=== PATIENT | female | born 1980 | race Caucasian/White ===

== ENCOUNTER 2017-02-07 17:02 | Emergency (ER) | payer OTHER ==
[~2017-02-07] VITALS: Ht 167.6 cm; Wt 95.5 kg
[~2017-02-07 17:02] MED LIST: LACT1CAP65 PO; LEVO500T79 PO; OXYC-465 PO; PROM25TA14 PO
[2017-02-07 17:24] VITALS: BP 134/88; PULSE 99; RESP 20; O2SAT 97
--- NOTE | 2017-02-07 18:27 | ED.REPORT ---
HPI-Headache Date of Service Feb 07, 2017 ED Provider: Zaki Sargent MD Patient is a 36 year old female with a hx of HTN and migraines who presents to the ED complaining of a headache onset 2 days ago. Her pain radiates to the back of her neck. Associated symptoms include nausea. She denies fever, vision changes, or any other symptoms She has been taking 800mg of Ibuprofen every 4 hours without relief. Her last dose was at 1400 today. This is similar to her previous migraines. Nursing Notes Stated Complaint: MIGRAINE Chief Complaint: Headache Nursing Notes Reviewed: Yes Allergies: Coded Allergies: No Known Allergies (Verified , 02/07/17) Scheduled Fluoxetine (Fluoxetine) 40 Mg Capsule 40 MG PO DAILY Lisinopril (Lisinopril) 10 Mg Tablet 10 MG PO DAILY Norethindrone-Ethinyl Estrad (Dasetta) 1 Each Tablet 1 TAB PO DAILY General Time Seen by MD: 18:25 Chief Complaint Migraine headache Hx Obtained From: Patient Arrived By: Walk-in Sudden in Onset?: Yes Onset Occurred: 2 days ago Symptom Duration: Since onset Similar Sx Previous: Yes Risk-Headache )( SAH Risk Stratification HypertensionNo Anticoagulation therapy, No Prior SAH RF Statements: Risk factors reviewed )( IC Mass Risk Stratification No HIV, No Malignancy RF Statements: Risk factors reviewed Past Medical History Past Medical History HTN Migraines Past Surgical History R hip Reports: Reports: Knee replacement Smoking History Never Smoker Social History Drug Use: Denies drug use Ambulatory Status Independent Review of Systems Constitutional: Denies: Fever GI: Reports: Nausea Musculoskeletal: Reports: Neck pain Neurologic: Reports: Headache, Denies: Vision change Complete sys rev & neg: except as marked. Physical Exam Initial Vital Signs Vital Signs (First) Date Time Temp Pulse Resp B/P Pulse Ox O2 Delivery O2 Flow Rate FiO2 02/07/17 17:24 37.1 99 20 134/88 97 Room Air Initial VS: Reviewed, Vital signs normal Respiratory: Breath sounds normal, Clear to auscultation, No respiratory distress Abdomen / GI: Soft, Non-tender Skin: Warm, Dry Psychiatric: Mood/affect normal, Behavior normal, Normal thought content General/Constitutional: Awake, Alert, Well developed Distress / Hydration: Positive: Distress mild Head / Eyes: Atraumatic, Normocephalic Neck: Supple, No meningismus, Full range of motion Neurologic: Oriented X3, Speech NL, CN II - XII intact Cardiovascular: Heart rate NL, Peripheral circulation NL Re-Eval/Medical Decision Med Decision/Clinical Course 36-year-old female with history of migraine headaches presenting with her typical migraine headache. She has no focal neurologic deficits. She felt much better after Toradol and Reglan. No signs of meningitis. Patient was discharged home with likely diagnosis migraine headache with return precautions. Re-Evaluation/Progress : Time of Eval: 19:19 Re-Evaluation/Progress Note: Discussed plan for discharge. Patient understands and agrees with plan. All questions addressed at this time. Counseled Regarding: Diagnosis, Need for follow-up, When/why to return to ED Discharge & Departure Impression: Primary Impression: Migraine Migraine type: unspecified Disposition: Home Discharge Condition All VS Reviewed: Yes Condition: Improved Patient Instructions: Migraine Headache (ED) Additional Instructions: Thank you for entrusting us with your care. Follow up with your primary doctor within the next week. Return to the emergency department if you experience increasing headache, numbness, weakness, tingling, fever, worsening neck pain, difficulty speaking or swallowing or any other symptoms. Referrals: Alfonso Stinson MD (PCP) Scribe Attestation Portions of this note were transcribed by Kassandra Gordon. I, Dr. Sargent personally performed the history, physical exam and medical decision-making; I reviewed and confirmed the accuracy of the information in the transcribed note. Signed by: Kassandra Gordon 02/07/17, 6415 copies to: Alfonso Stinson MD, Ben M MD Feb 07, 2017 18:26 KASSANDRA GORDON Feb 07, 2017 18:43
[2017-02-07] MEDS ORDERED: MetoCLOpramide 5 mg/mL 2 mL Inj IM ONE (18:45)
[2017-02-07] MEDS ORDERED: LISI10TA PO (19:09)
[2017-02-07] MEDS ORDERED: FLUO40CA PO (19:09)
[2017-02-07] MEDS ORDERED: NORE-28 PO (19:09)
[2017-02-07 19:29] VITALS: BP 129/87; PULSE 86; RESP 16; O2SAT 99
== END 2017-02-07 19:29 | disposition home or self-care (01) ==
LOC: SED 17:02
DX: G43.909 Migraine, unspecified, not intractable, without status migrainosus (principal); I10 Essential (primary) hypertension
CPT/HCPCS: 96372; 99284; J1885; J2765